=== PATIENT | female | born 1995 | race Caucasian/White ===

== ENCOUNTER 2016-08-22 01:18 | Emergency (ER) | payer MEDICAID ==
[~2016-08-22] VITALS: Ht 165.1 cm; Wt 55.0 kg
[2016-08-22] MEDS ORDERED: DIPH,PERTUSS(ACELL),TET VAC/PF 0.5 ML IM-VACC ONE ×2 (01:30→01:37)
[2016-08-22 01:56] VITALS: BP 116/75
[2016-08-22 02:00] LABS: HIV 1&2 ANTIBODY SCREEN Nonreactive (Nonreactive); HIV-1 p24 ANTIGEN Nonreactive (Nonreactive)
[2016-08-22] MEDS ORDERED: BACITRACIN ZINC OINT 500U/GM, 0.9 GM ONE (02:02)
[2016-08-23 09:27] LABS: HEP B SURF. AB < 3.1 mIU/mL (0.0-10.0)
[2016-08-23 10:04] LABS: HEPATITIS C VIRUS ANTIBODY Nonreactive (Nonreactive)
== END 2016-08-22 02:19 | disposition home or self-care (01) ==
LOC: ED 02:13
DX: S50.872A Other superficial bite of left forearm, initial encounter (principal); S60.471A Other superficial bite of left index finger, initial encounter; Z72.89 Other problems related to lifestyle; W50.3XXA Accidental bite by another person, initial encounter; Y93.89 Activity, other specified; Y92.098 Other place in other non-institutional residence as the place of occurrence of the external cause; Y99.8 Other external cause status
CPT/HCPCS: 36415; 86703; 86705; 86706; 86803; 87340; 87899; 90471; 90715; G0435

== ENCOUNTER 2016-08-22 18:02 | Emergency (ER) | payer MEDICAID ==
[~2016-08-22] VITALS: Ht 167.6 cm; Wt 49.4 kg
[2016-08-22 18:04] VITALS: BP 117/83
[2016-08-22] MEDS ORDERED: AMPICILLIN/SULBACTAM 3 GM IM ONE (18:30)
[2016-08-22] MEDS ORDERED: LIDOCAINE 1%, 20ML ONE (18:47)
[2016-08-22] MEDS ORDERED: LIDOCAINE 1%, 20ML SQ ONE (19:00)
== END 2016-08-22 20:09 | disposition home or self-care (01) ==
LOC: ED 19:00
DX: S61.257A Open bite of left little finger without damage to nail, initial encounter (principal); L03.012 Cellulitis of left finger; F17.200 Nicotine dependence, unspecified, uncomplicated; W50.3XXA Accidental bite by another person, initial encounter; Y93.89 Activity, other specified; Y92.89 Other specified places as the place of occurrence of the external cause; Y99.8 Other external cause status
CPT/HCPCS: 96372; 99283; J0295; J3490